=== PATIENT | female | born 1975 | race Caucasian/White ===

== ENCOUNTER 2022-06-02 22:34 | Emergency (ER) | payer MEDICAID ==
[~2022-06-02] VITALS: Ht 165.1 cm; Wt 65.0 kg
[2022-06-02] MEDS ORDERED: MAGNESIUM/ALUMINUM HYDROXIDE/SIMETHICONE 30ML UDC PO STA (23:35)
[2022-06-02] MEDS ORDERED: ONDANSETRON HCL 4MG/2ML INJ IV STA (23:35)
[2022-06-02] MEDS ORDERED: KETOROLAC 30MG/ML VIAL IV STA (23:35)
[2022-06-02 23:43] LABS: BASOPHILS % 0.4 % (0.0-2.0); EOSINOPHILS % 1.5 % (0.0-5.0); HEMATOCRIT. 38.5 % (36.0-48.0); LYMPHOCYTES % 26.3 % (20.0-50.0); MEAN CORPUSCULAR VOLUME 88.6 fL (81.0-99.0); MEAN PLATELET VOLUME 7.5 fl (7.4-10.4); MONOCYTES % 4.7 % (2.0-8.0); NEUTROPHILS % 67.1 % (40.0-76.0); PLATELET 244 x1000/uL (130-400); RED BLOOD CELL COUNT 4.34 mill/uL (4.2-5.4); RED CELL DISTRIBUTION WIDTH 13.4 % (11.6-14.6)
[2022-06-02] MEDS ORDERED: SODIUM CHLORIDE 0.9% 1,000 ML IV ONE (23:45)
[2022-06-02 23:46] LABS: CHLORIDE 103 mEq/L (98-107)
[2022-06-03 00:02] LABS: HCG SCREEN NEGATIVE
[2022-06-03] MEDS ORDERED: KETOROLAC 30MG/ML VIAL IV NR (01:30)
[2022-06-03] MEDS ORDERED: ONDANSETRON HCL 4MG/2ML INJ IV NR (01:30)
[2022-06-03] MEDS ORDERED: MAGNESIUM/ALUMINUM HYDROXIDE/SIMETHICONE 30ML UDC PO NR (01:30)
[2022-06-03] MEDS ORDERED: ONDA4TAB50 MT (03:19)
[2022-06-03] MEDS ORDERED: HYDR-4001 MT (03:19)
[2022-06-03 04:00] VITALS: BP 119/78
== END 2022-06-03 04:45 | disposition home or self-care (01) ==
LOC: ER 22:34
DX: K80.00 Calculus of gallbladder with acute cholecystitis without obstruction (principal)
CPT/HCPCS: 36415; 71045; 76705; 80053; 83690; 84484; 84703; 85025; 96361; 96374; 96375; 99285; J1885; J2405; J7030; Z7610